=== PATIENT | female | born 1985 | race Caucasian/White ===

== ENCOUNTER 2017-04-24 12:13 | Emergency (ER) | payer MEDICAID, OTHER ==
[~2017-04-24] VITALS: Ht 157.5 cm; Wt 77.0 kg
[2017-04-24 12:48] VITALS: BP 136/88
== END 2017-04-24 14:07 | disposition home or self-care (01) ==
LOC: ER 13:18
DX: S61.412D Laceration without foreign body of left hand, subsequent encounter (principal); X58.XXXD Exposure to other specified factors, subsequent encounter
CPT/HCPCS: 99282; Z7610

== ENCOUNTER 2017-05-02 16:40 | Emergency (ER) | payer OTHER ==
[~2017-05-02] VITALS: Ht 157.5 cm; Wt 77.0 kg
[2017-05-02 18:35] VITALS: BP 131/84
== END 2017-05-02 19:05 | disposition home or self-care (01) ==
LOC: ER 17:28
DX: Z48.02 Encounter for removal of sutures (principal)
CPT/HCPCS: 99281

== ENCOUNTER 2022-09-06 18:52 | Emergency (ER) | payer OTHER ==
[~2022-09-06] VITALS: Ht 157.5 cm; Wt 78.0 kg
[2022-09-06 19:14] VITALS: BP 144/87
[2022-09-06 21:56] LABS: BASOPHILS % 0.7 % (0.0-2.0); EOSINOPHILS % 2.2 % (0.0-5.0); HEMATOCRIT. 32.2 % (36.0-48.0); HEMOGLOBIN. 10.6 g/dL (12.0-16.0); LYMPHOCYTES % 23.4 % (20.0-50.0); MEAN CORPUSCULAR HEMOGLOBIN 27.2 pg (28.0-32.0); MEAN CORPUSCULAR VOLUME 82.4 fL (81.0-99.0); MEAN PLATELET VOLUME 8.9 fl (7.4-10.4); NEUTROPHILS % 65.7 % (40.0-76.0); PLATELET 294 x1000/uL (130-400); RED CELL DISTRIBUTION WIDTH 14.5 % (11.6-14.6)
[2022-09-06] MEDS ORDERED: IBUP-2029 MT (22:48)
== END 2022-09-06 23:10 | disposition home or self-care (01) ==
LOC: ER 18:52
DX: R22.1 Localized swelling, mass and lump, neck (principal); M25.511 Pain in right shoulder
CPT/HCPCS: 36415; 70360; 85025; 99284

== ENCOUNTER 2023-03-14 22:08 | Emergency (ER) | payer OTHER ==
[~2023-03-14] VITALS: Ht 157.5 cm; Wt 72.0 kg
[~2023-03-14 22:08] MED LIST: IBUP-2029 MT
[2023-03-14 22:53] VITALS: BP 169/72; O2SAT 100
[2023-03-14] MEDS ORDERED: ACETAMINOPHEN 325MG TABLET PO ONE (23:30)
[2023-03-15] MEDS ORDERED: IBUP-1523 MT (02:06)
[2023-03-15] MEDS ORDERED: TOPUD MT (02:06)
[2023-03-15 02:27] VITALS: PULSE 88; RESP 16; TEMP 98.2
== END 2023-03-15 02:30 | disposition home or self-care (01) ==
LOC: ER 22:08
DX: S06.0X0A Concussion without loss of consciousness, initial encounter (principal); S16.1XXA Strain of muscle, fascia and tendon at neck level, initial encounter; X58.XXXA Exposure to other specified factors, initial encounter; Y93.89 Activity, other specified; Y92.89 Other specified places as the place of occurrence of the external cause; Y99.8 Other external cause status
CPT/HCPCS: 72050; 81025; 99284